=== PATIENT | male | born 1935 | race Caucasian/White ===

== ENCOUNTER 2017-11-13 11:19 | Observation (INO) | payer MEDICARE, BC ==
[~2017-11-13] VITALS: Ht 182.9 cm; Wt 88.6 kg
[2017-11-13 11:50] LABS: HEMATOCRIT 34.9 % (39.0-50.0); HEMOGLOBIN 10.7 g/dl (14.0-18.0); IMMATURE GRANULOCYTES 0.5 % (0.0-5.0); MEAN CELL VOLUME 83.9 fL CALC (80.0-100.0); MEAN CORPUSCULAR HGB 25.7 pG CALC (26.0-32.0); MEAN CORPUSCULAR HGB CONC 30.7 g/L CALC (32.0-36.0); NEUT# 4.86 thou/uL (1.82-7.42); RED BLOOD COUNT 4.16 mill/uL (4.70-6.10); RED CELL DISTRI WIDTH 17.8 % (11.5-15.5)
[2017-11-13 12:04] LABS: ALBUMIN 3.8 g/dL (3.2-5.0); ALKALINE PHOSPHATASE 53 u/l (38-126); ANION GAP 16 (6-22 (CALC)); BILIRUBIN, TOTAL 0.6 mg/dL (0.0-1.4); BUN 18 mg/dL (8-23); BUN/CREATININE RATIO 17 (12-20 (CALC)); CARBON DIOXIDE 23 mmol/l (22-30); CHLORIDE 109 mmol/l (95-108); CREATININE 1.1 mg/dL (0.7-1.3); GFR > 60 ML/MIN (>=60 (CALC)); GFR FOR AFR.AMER. > 60 ML/MIN (>=60 (CALC)); POTASSIUM 4.6 mmol/l (3.5-5.1); SGOT/AST 13 u/l (19-48); SGPT/ALT 24 u/l (11-66); SODIUM 143 mmol/l (137-146); TOTAL PROTEIN 6.8 g/dL (6.3-8.2)
[2017-11-13 12:08] LABS: DIGOXIN 1.3 ng/mL (0.8-2.0)
[2017-11-13 12:14] LABS: MYOGLOBIN 61 ng/mL (0 - 121)
[2017-11-13] MEDS ORDERED: JANUMET1 TA1 PO (13:06)
[2017-11-13] MEDS ORDERED: AMARYL2 MG PO (13:07)
[2017-11-13] MEDS ORDERED: DIGOXIN0.125 MG PO (13:07)
[2017-11-13] MEDS ORDERED: CARVEDILOL6.25 MG PO (13:07)
[2017-11-13] MEDS ORDERED: OCUVIT1 PO (13:08)
[2017-11-13] MEDS ORDERED: RAMIPRIL2.5 MG PO (13:08)
[2017-11-13] MEDS ORDERED: ADVAIR DISK1 PO (13:09)
[2017-11-13] MEDS ORDERED: TAMSULOSIN HCL0.4 MG PO (13:10)
[2017-11-13] MEDS ORDERED: SIMVASTATIN20 MG PO (13:10)
[2017-11-13] MEDS ORDERED: COUMADIN2.5 MG PO (13:10)
[2017-11-13] MEDS ORDERED: NIACIN ER500 M1 PO (13:11)
[2017-11-13] MEDS ORDERED: BETHANECHOL CHL25 MG PO (13:11)
[2017-11-13] MEDS ORDERED: FINASTERIDE5 MG PO (13:11)
[2017-11-13 13:21] LABS: URINE BILIRUBIN - DIPSTICK NEGATIVE (NEGATIVE); URINE BLOOD DIPSTICK NEGATIVE (NEGATIVE); URINE CLARITY CLEAR; URINE COLOR YELLOW; URINE GLUCOSE - DIPSTICK NEGATIVE (NEGATIVE); URINE KETONE NEGATIVE (NEGATIVE); URINE LEUK ESTERASE NEGATIVE (NEGATIVE); URINE NITRITE - DIPSTICK NEGATIVE (Negative); URINE PH 5.5 (4.5-8.0); URINE PROTEIN - DIPSTICK 30 mg/dL (NEG-TRACE); URINE SPECIFIC GRAVITY >=1.030
[2017-11-13 13:22] LABS: URINE EPITHELIAL CELLS RARE EPI/hpf (0-FEW); URINE MUCUS MODERATE hpf (NONE-FEW)
[2017-11-13 15:51] VITALS: BP 151/69
[2017-11-13 19:00] VITALS: BP 143/62
[2017-11-14 00:23] VITALS: BP 127/66
[2017-11-14 04:46] VITALS: BP 139/73
[2017-11-14 06:24] LABS: ANION GAP 14 (6-22 (CALC)); BUN 17 mg/dL (8-23); BUN/CREATININE RATIO 17 (12-20 (CALC)); CALCULATED LDLCHOLESTEROL 14 mg/dL (62-129 (CALC)); CARBON DIOXIDE 27 mmol/l (22-30); CHLORIDE 105 mmol/l (95-108); CHOLESTEROL HDL RATIO 1.8 (<4.4 (CALC)); GFR > 60 ML/MIN (>=60 (CALC)); GFR FOR AFR.AMER. > 60 ML/MIN (>=60 (CALC)); HDL CHOLESTEROL 35 mg/dL (>=40); POTASSIUM 4.2 mmol/l (3.5-5.1); SODIUM 143 mmol/l (137-146); TOTAL CHOLESTEROL 63 mg/dl (0-199); TOTAL TRIGLYCERIDES 73 mg/dl (30-149); VLDL CHOLESTROL 15 mg/dl (0-38 (CALC))
[2017-11-14 06:37] LABS: INTERNATIONAL NORMALIZED RATIO 5.6 RATIO (0.7-1.3); PROTHROMBIN TIME 64.4 SECONDS (9.0-12.5)
[2017-11-14 07:50] VITALS: BP 124/61
[2017-11-14 10:59] VITALS: BP 132/67
[2017-11-14 10:59] LABS: HEMATOCRIT 33.2 % (39.0-50.0); HEMOGLOBIN 10.3 g/dl (14.0-18.0); MEAN CELL VOLUME 83.8 fL CALC (80.0-100.0); RED BLOOD COUNT 3.96 mill/uL (4.70-6.10); RED CELL DISTRI WIDTH 17.8 % (11.5-15.5)
[2017-11-14] MEDS ORDERED: LASIX20 MG PO (15:27)
[2017-11-14 15:41] VITALS: BP 135/68
== END 2017-11-14 17:45 | disposition home or self-care (01) ==
LOC: ED 11:19 → ED-I 12:53 → ED 13:55 → MS2 13:56
PROVIDERS: Emergency Medicine; Internal Medicine; ADMIT Internal Medicine; ATTEND Internal Medicine
DX: I11.0 Hypertensive heart disease with heart failure (principal); I50.23 Acute on chronic systolic (congestive) heart failure; E11.9 Type 2 diabetes mellitus without complications; R31.9 Hematuria, unspecified; T45.515A Adverse effect of anticoagulants, initial encounter; R00.1 Bradycardia, unspecified; T46.0X5A Adverse effect of cardiac-stimulant glycosides and drugs of similar action, initial encounter; T44.7X5A Adverse effect of beta-adrenoreceptor antagonists, initial encounter; I48.2 Chronic atrial fibrillation; I25.10 Atherosclerotic heart disease of native coronary artery without angina pectoris; E78.5 Hyperlipidemia, unspecified; I25.5 Ischemic cardiomyopathy; J44.9 Chronic obstructive pulmonary disease, unspecified; J30.2 Other seasonal allergic rhinitis; I65.23 Occlusion and stenosis of bilateral carotid arteries; D64.9 Anemia, unspecified; Z95.2 Presence of prosthetic heart valve; Z95.1 Presence of aortocoronary bypass graft; Z79.84 Long term (current) use of oral hypoglycemic drugs

== ENCOUNTER 2018-03-25 17:53 | Inpatient (IN) | payer MEDICARE, BC ==
[~2018-03-25] VITALS: Ht 182.9 cm; Wt 95.4 kg
[~2018-03-25 17:53] MED LIST: ADVAIR DISK1 PO; AMARYL2 MG PO; BETHANECHOL CHL25 MG PO; CARVEDILOL6.25 MG PO; COUMADIN2.5 MG PO; DIGOXIN0.125 MG PO; FINASTERIDE5 MG PO; JANUMET1 TA1 PO; LASIX20 MG PO; NIACIN ER500 M1 PO; OCUVIT1 PO; RAMIPRIL2.5 MG PO; SIMVASTATIN20 MG PO; TAMSULOSIN HCL0.4 MG PO
[2018-03-25] MEDS ORDERED: OCUVITE PO (18:18)
[2018-03-25] MEDS ORDERED: BUMETANIDE1 MG PO (18:19)
[2018-03-25] MEDS ORDERED: MUCINEX600 MG PO (18:19)
[2018-03-25 18:29] LABS: HEMATOCRIT 36.7 % (39.0-50.0); HEMOGLOBIN 11.7 g/dl (14.0-18.0); IMMATURE GRANULOCYTES 0.2 % (0.0-5.0); MEAN CORPUSCULAR HGB 28.5 pG CALC (26.0-32.0); MEAN CORPUSCULAR HGB CONC 31.9 g/L CALC (32.0-36.0); NEUT# 3.59 thou/uL (1.82-7.42); RED BLOOD COUNT 4.1 mill/uL (4.70-6.10); RED CELL DISTRI WIDTH 19.5 % (11.5-15.5)
[2018-03-25 18:41] LABS: ALBUMIN 3.8 g/dL (3.2-5.0); ANION GAP 16 (6-22 (CALC)); BUN 34 mg/dL (8-23); BUN/CREATININE RATIO 24 (12-20 (CALC)); CARBON DIOXIDE 24 mmol/l (22-30); CHLORIDE 105 mmol/l (95-108); CREATININE 1.4 mg/dL (0.7-1.3); GFR 48 ML/MIN (>=60 (CALC)); GFR FOR AFR.AMER. 58 ML/MIN (>=60 (CALC)); POTASSIUM 4.5 mmol/l (3.5-5.1); SGOT/AST 22 u/l (19-48); SODIUM 141 mmol/l (137-146); TOTAL PROTEIN 6.9 g/dL (6.3-8.2)
[2018-03-25 18:42] LABS: ALKALINE PHOSPHATASE 100 u/l (38-126)
[2018-03-25 18:44] LABS: MEAN CELL VOLUME 89.5 fL CALC (80.0-100.0)
[2018-03-25 18:48] LABS: INTERNATIONAL NORMALIZED RATIO 4.2 RATIO (0.7-1.3); PROTHROMBIN TIME 43.2 SECONDS (9.0-12.5)
[2018-03-25 20:34] LABS: URINE BILIRUBIN - DIPSTICK NEGATIVE (NEGATIVE); URINE BLOOD DIPSTICK TRACE-INTACT (NEGATIVE); URINE COLOR YELLOW; URINE GLUCOSE - DIPSTICK NEGATIVE (NEGATIVE); URINE KETONE NEGATIVE (NEGATIVE); URINE LEUK ESTERASE NEGATIVE (NEGATIVE); URINE NITRITE - DIPSTICK NEGATIVE (Negative); URINE PH 5.5 (4.5-8.0); URINE PROTEIN - DIPSTICK TRACE mg/dL (NEG-TRACE); URINE SPECIFIC GRAVITY 1.025; URINE UROBILINOGEN - DIPSTICK 0.2 E.U./dL (0.2)
[2018-03-25 20:37] LABS: URINE CLARITY CLEAR
[2018-03-25 21:20] VITALS: BP 93/58
[2018-03-26] VITALS (7 sets, daily range): BP systolic 92–120; BP diastolic 55–75
[2018-03-26 10:57] LABS: PROTHROMBIN TIME 40.9 SECONDS (9.0-12.5)
[2018-03-27] VITALS (13 sets, daily range): BP systolic 106–160; BP diastolic 63–79
[2018-03-27 05:44] LABS: INTERNATIONAL NORMALIZED RATIO 3.6 RATIO (0.7-1.3); PROTHROMBIN TIME 37.1 SECONDS (9.0-12.5)
[2018-03-27 05:50] LABS: HEMATOCRIT 31.7 % (39.0-50.0); HEMOGLOBIN 10.5 g/dl (14.0-18.0); IMMATURE GRANULOCYTES 0.2 % (0.0-5.0); MEAN CELL VOLUME 87.6 fL CALC (80.0-100.0); MEAN CORPUSCULAR HGB CONC 33.1 g/L CALC (32.0-36.0); NEUT# 3.02 thou/uL (1.82-7.42); RED BLOOD COUNT 3.62 mill/uL (4.70-6.10); RED CELL DISTRI WIDTH 18.8 % (11.5-15.5)
[2018-03-27 05:53] LABS: ALBUMIN 3.2 g/dL (3.2-5.0); ALKALINE PHOSPHATASE 94 u/l (38-126); ANION GAP 14 (6-22 (CALC)); BILIRUBIN, TOTAL 0.9 mg/dL (0.0-1.4); BUN 31 mg/dL (8-23); BUN/CREATININE RATIO 24 (12-20 (CALC)); CARBON DIOXIDE 24 mmol/l (22-30); CHLORIDE 107 mmol/l (95-108); CREATININE 1.2 mg/dL (0.7-1.3); GFR 58 ML/MIN (>=60 (CALC)); GFR FOR AFR.AMER. > 60 ML/MIN (>=60 (CALC)); MAGNESIUM 2.2 mg/dL (1.6-2.3); SGOT/AST 18 u/l (19-48); SODIUM 140 mmol/l (137-146); TOTAL PROTEIN 6.1 g/dL (6.3-8.2)
[2018-03-28 00:15] VITALS: BP 117/67
[2018-03-28 04:09] VITALS: BP 132/72
[2018-03-28 05:33] LABS: HEMATOCRIT 31.8 % (39.0-50.0); HEMOGLOBIN 10.4 g/dl (14.0-18.0); IMMATURE GRANULOCYTES 0.3 % (0.0-5.0); MEAN CELL VOLUME 88.3 fL CALC (80.0-100.0); MEAN CORPUSCULAR HGB 28.9 pG CALC (26.0-32.0); MEAN CORPUSCULAR HGB CONC 32.7 g/L CALC (32.0-36.0); NEUT# 2.31 thou/uL (1.82-7.42); RED BLOOD COUNT 3.6 mill/uL (4.70-6.10); RED CELL DISTRI WIDTH 18.5 % (11.5-15.5)
[2018-03-28 06:07] LABS: ALBUMIN 3.2 g/dL (3.2-5.0); ALKALINE PHOSPHATASE 91 u/l (38-126); ANION GAP 12 (6-22 (CALC)); BUN 28 mg/dL (8-23); BUN/CREATININE RATIO 23 (12-20 (CALC)); CARBON DIOXIDE 26 mmol/l (22-30); CHLORIDE 106 mmol/l (95-108); CREATININE 1.2 mg/dL (0.7-1.3); GFR 58 ML/MIN (>=60 (CALC)); GFR FOR AFR.AMER. > 60 ML/MIN (>=60 (CALC)); MAGNESIUM 2.1 mg/dL (1.6-2.3); POTASSIUM 4.2 mmol/l (3.5-5.1); SGOT/AST 18 u/l (19-48); SODIUM 140 mmol/l (137-146); TOTAL PROTEIN 6.1 g/dL (6.3-8.2)
[2018-03-28 07:20] LABS: PROTHROMBIN TIME 21.3 SECONDS (9.0-12.5)
[2018-03-28 09:16] VITALS: BP 115/68
[2018-03-28 11:26] VITALS: BP 106/65
[2018-03-28] MEDS ORDERED: WARFARIN2.5 MG PO (15:34)
[2018-03-28 15:53] VITALS: BP 108/58
[2018-03-28 19:15] VITALS: BP 118/73
[2018-03-29 00:29] VITALS: BP 94/56
[2018-03-29 04:30] VITALS: BP 106/67
[2018-03-29 05:59] LABS: HEMATOCRIT 31.3 % (39.0-50.0); HEMOGLOBIN 10.4 g/dl (14.0-18.0); IMMATURE GRANULOCYTES 0.2 % (0.0-5.0); MEAN CELL VOLUME 87.7 fL CALC (80.0-100.0); MEAN CORPUSCULAR HGB 29.1 pG CALC (26.0-32.0); MEAN CORPUSCULAR HGB CONC 33.2 g/L CALC (32.0-36.0); NEUT# 3.11 thou/uL (1.82-7.42); RED BLOOD COUNT 3.57 mill/uL (4.70-6.10); RED CELL DISTRI WIDTH 18.6 % (11.5-15.5)
[2018-03-29 06:33] LABS: ALBUMIN 3.1 g/dL (3.2-5.0); ALKALINE PHOSPHATASE 89 u/l (38-126); ANION GAP 13 (6-22 (CALC)); BILIRUBIN, TOTAL 1.2 mg/dL (0.0-1.4); BUN 29 mg/dL (8-23); BUN/CREATININE RATIO 24 (12-20 (CALC)); CARBON DIOXIDE 27 mmol/l (22-30); CHLORIDE 104 mmol/l (95-108); CREATININE 1.2 mg/dL (0.7-1.3); GFR 58 ML/MIN (>=60 (CALC)); GFR FOR AFR.AMER. > 60 ML/MIN (>=60 (CALC)); POTASSIUM 4.3 mmol/l (3.5-5.1); SGOT/AST 19 u/l (19-48); SODIUM 139 mmol/l (137-146)
[2018-03-29 07:32] VITALS: BP 109/67
[2018-03-29 11:16] VITALS: BP 112/63
[2018-03-29] MEDS ORDERED: DIGOXIN0.125 MG PO (13:21)
[2018-03-29] MEDS ORDERED: DOXYCYCL HYC100 MG PO (13:21)
[2018-03-29] MEDS ORDERED: OCUVIT1 PO (13:22)
[2018-03-29] MEDS ORDERED: LASIX20 MG PO (13:22)
[2018-03-29] MEDS ORDERED: JANUMET1 TA1 PO (13:22)
[2018-03-29] MEDS ORDERED: BETHANECHOL CHL25 MG PO (13:22)
[2018-03-29] MEDS ORDERED: RAMIPRIL2.5 MG PO (13:22)
[2018-03-29] MEDS ORDERED: ADVAIR DISK1 PO (13:22)
== END 2018-03-29 14:50 | disposition home or self-care (01) | DRG 291 ==
LOC: ED 17:53 → ED-I 19:10 → ED 21:00 → MS2 21:01
PROVIDERS: Emergency Medicine; Internal Medicine Nephrology; Nurse Practitioner Adult Health; ADMIT Internal Medicine; ATTEND Internal Medicine
PROC: 30233K1 Transfusion of Nonautologous Frozen Plasma into Peripheral Vein, Percutaneous Approach (ICD-10-PCS; principal; 2018-03-27)
PROC: 30233K1 Transfusion of Nonautologous Frozen Plasma into Peripheral Vein, Percutaneous Approach (ICD-10-PCS; 2018-03-27)
PROC: 0W993ZZ Drainage of Right Pleural Cavity, Percutaneous Approach (ICD-10-PCS; 2018-03-28)
DX: I13.0 Hypertensive heart and chronic kidney disease with heart failure and stage 1 through stage 4 chronic kidney disease, or unspecified chronic kidney disease (principal); I50.23 Acute on chronic systolic (congestive) heart failure; J18.9 Pneumonia, unspecified organism; J91.8 Pleural effusion in other conditions classified elsewhere; N17.9 Acute kidney failure, unspecified; R18.8 Other ascites; J44.0 Chronic obstructive pulmonary disease with (acute) lower respiratory infection; I48.2 Chronic atrial fibrillation; E11.22 Type 2 diabetes mellitus with diabetic chronic kidney disease; N18.3 Chronic kidney disease, stage 3 (moderate); I25.10 Atherosclerotic heart disease of native coronary artery without angina pectoris; E78.5 Hyperlipidemia, unspecified; N40.0 Benign prostatic hyperplasia without lower urinary tract symptoms; I65.21 Occlusion and stenosis of right carotid artery; I25.5 Ischemic cardiomyopathy; H61.23 Impacted cerumen, bilateral; J30.2 Other seasonal allergic rhinitis; R79.1 Abnormal coagulation profile; T45.515A Adverse effect of anticoagulants, initial encounter; Z95.810 Presence of automatic (implantable) cardiac defibrillator; Z95.1 Presence of aortocoronary bypass graft; Z79.01 Long term (current) use of anticoagulants; Z79.84 Long term (current) use of oral hypoglycemic drugs